=== PATIENT | female | born 1990 | race Hispanic/Latino ===

== ENCOUNTER 2021-11-11 20:05 | Emergency (ER) | payer OTHER ==
[2021-11-11 20:58] LABS: #Basophils 0.1 10x3/uL (0.0-0.2); #Eosinphils 0.2 10x3/uL (0.0-0.5); #Monocytes 0.9 10x3/uL (0.0-1.1); #Neutrophils 11.8 10x3/uL (1.5-8.4); %Basophils 0.5 % (0.0-2.0); %Eosinophils 1.1 % (0.0-6.0); %Lymphocytes 20.7 % (18.0-47.0); %Monocytes 5.4 % (0.0-10.0); %Neutrophils 71.9 % (40.0-75.0); Hemoglobin 14.8 g/dL (12.0-15.5); Mean Corpuscular Hemoglobin 27.8 pg (27.0-33.0); Mean Corpuscular Volume 81.8 fl (81.6-98.3); Mean Platelet Volume 9.8 fl (7.4-10.4); Platelet Count 322 10x3/uL (150-450); RBC Distribution Width 14.2 % (11.5-14.5); Red Blood Cell (RBC) Count 5.32 10x6/uL (3.90-5.03); White Blood Cell (WBC) Count 16.4 10x3/uL (3.5-10.5)
[2021-11-11 21:09] LABS: BHCG - Serum POSITIVE (NEGATIVE); Pregs Control Background? CLEAR/WHITE (CLR/WHITE); Pregs Control Bar Appear? YES (CONTROL BAR)
[2021-11-11 21:11] LABS: ALT (SGPT) 28 U/L (8-55); AST (SGOT) 15 U/L (5-34); Albumin 4.3 g/dL (3.5-5.0); Alkaline Phosphatase 81 U/L (40-110); Anion Gap 13 mmol/L (10-20); BUN (Urea Nitrogen) 8 mg/dL (7.0-18.7); Bilirubin, Total 0.4 mg/dL (0.2-1.2); CK (CPK) 106 U/L (29-168); Calc. Creatinine Clearance 0 mL/min (70-130); Calcium 9.6 mg/dL (7.8-10.44); Carbon Dioxide 24 mmol/L (22-29); Chloride 103 mmol/L (98-107); Estimated GFR 100; Glucose 104 mg/dL (70-105); Lipase 23 U/L (8-78); Potassium 3.9 mmol/L (3.5-5.1); Protein, Total 7.3 g/dL (6.0-8.3); Sodium 136 mmol/L (136-145)
[2021-11-11] MEDS ORDERED: Diazepam 5 MG TAB ONE (21:16)
[2021-11-11] MEDS ORDERED: Ketorolac Tromethamine 30 MG/ML VIAL ONE (21:16)
== END 2021-11-11 23:03 | disposition home or self-care (01) ==
LOC: CSHERS 20:05
DX: O99.891 Other specified diseases and conditions complicating pregnancy (principal); R07.9 Chest pain, unspecified; Z3A.00 Weeks of gestation of pregnancy not specified
CPT/HCPCS: 36415; 71045; 82550; 83690; 84702; 84703; 93005; 96372; J1885

== ENCOUNTER 2022-01-12 23:54 | Day surgery (SDC) | payer OTHER ==
[2022-01-13 00:41] LABS: Amphetamine Detected (NotDetected); Barbiturates Screen Not Detected (NotDetected); Benzodiazepine Screen Not Detected (NotDetected); Cocaine Metabolite Screen Not Detected (NotDetected); Methadone Not Detected (NotDetected); Methamphetamine Detected (NotDetected); Opiate Screen Not Detected (NotDetected); Oxycodone Screen Not Detected (NotDetected); Phencyclidine (PCP) Not Detected (NotDetected); THC/Cannabinoid Screen Detected (NotDetected); Tricyclic Screen Not Detected (NotDetected)
[2022-01-13 00:49] LABS: Bilirubin Neg (Negative); Blood, Urine 10 (Negative); Clarity Sl. Cloudy (Clear); Glucose, Urine (Dipstick) Normal (Negative); Ketone, Urine 50 mg/dL (Negative); Leukocyte 500 (Negative); Nitrite Negative (Negative); Protein, Urine (Dipstick) 15 mg/dl (Neg-Trace); Urobilinogen Normal mg/dL (Less than 2)
[2022-01-13 00:51] LABS: Urine Culture Reflex No No
[2022-01-13 01:04] LABS: Bacteria/HPF 1+ HPF (None Seen); RBC/HPF 0-3 HPF (0-3); Squamous Epithelial 0-3 HPF (0-3)
[2022-01-13 01:28] VITALS: BMI 21.6
[2022-01-13] MEDS ORDERED: cefTRIAXone\\ROCEPHIN 1 GM VIAL IM SCH (01:45)
[2022-01-13] MEDS ORDERED: Lidocaine 1% PF 10 ML AMP ONE (02:08)
== END 2022-01-13 02:30 | disposition home or self-care (01) ==
LOC: CSHLD/OP 23:54
PROVIDERS: ATTEND Obstetrics & Gynecology
DX: O99.321 Drug use complicating pregnancy, first trimester (principal); F12.929 Cannabis use, unspecified with intoxication, unspecified; F15.929 Other stimulant use, unspecified with intoxication, unspecified; O23.41 Unspecified infection of urinary tract in pregnancy, first trimester; N39.0 Urinary tract infection, site not specified; Z3A.13 13 weeks gestation of pregnancy
CPT/HCPCS: 51701; 80306; 81001; 87086; 96372; 99283; J0696; J2001

== ENCOUNTER 2022-07-08 02:44 | Inpatient (IN) | payer OTHER ==
[2022-07-08] MEDS ORDERED: Azithromycin 500 MG VIAL ONE (03:18)
[2022-07-08] MEDS ORDERED: CEFAZOLIN 2 GM VIAL ONE (03:19)
[2022-07-08] MEDS ORDERED: Famotidine/PF 20 mg/2ml Vial SLOW IVP PRN (03:22)
[2022-07-08] MEDS ORDERED: Bicitra 30 ML UDCUP PO PRN (03:22)
[2022-07-08] MEDS ORDERED: Ondansetron PF 4 MG/2 ML Vial IVP PRN ×2 (03:26→04:18)
[2022-07-08] MEDS ORDERED: Promethazine HCl 25 MG/ML VIAL IM PRN ×2 (03:26→04:18)
[2022-07-08] MEDS ORDERED: hydrALAZINE 20 MG/ML VIAL SLOW IVP PRN ×2 (03:26→09:41)
[2022-07-08] MEDS ORDERED: Carboprost 250 MCG/ML AMP IM PRN (03:26)
[2022-07-08] MEDS ORDERED: Tranexamic Acid 1,000 MG/10 ML VIAL IVP PRN (03:26)
[2022-07-08] MEDS ORDERED: Methylergonovine 0.2 MG/ML VIAL IM PRN (03:26)
[2022-07-08] MEDS ORDERED: Misoprostol 200 MCG TAB PR PRN (03:26)
[2022-07-08 03:27] LABS: Hemoglobin 12.8 g/dL (12.0-15.5); Mean Corpuscular HGB CONC 33.2 g/dL (32.0-36.0); Mean Corpuscular Hemoglobin 26.2 pg (27.0-33.0); Mean Corpuscular Volume 79.1 fl (81.6-98.3); Mean Platelet Volume 10.7 fl (7.4-10.4); Platelet Count 338 10x3/uL (150-450); RBC Distribution Width 13.6 % (11.5-14.5); Red Blood Cell (RBC) Count 4.88 10x6/uL (3.90-5.03)
[2022-07-08] MEDS ORDERED: NS w/ Oxytocin 30 units 500 ML IV SCH (03:30)
[2022-07-08] MEDS ORDERED: CEFAZOLIN 2 GM in Sodium Chloride 0.9% 100 ML IVPB SCH (03:30)
[2022-07-08] MEDS ORDERED: Azithromycin 500 MG in Sodium Chloride 0.9% 250 ML 250 ML IVPB SCH (03:30)
[2022-07-08] MEDS ORDERED: Dextrose 5% in Water 1,000 ML IV PRN (03:32)
[2022-07-08] MEDS ORDERED: Dextrose 50% Abboject 50 ML SYRINGE SLOW IVP PRN (03:32)
[2022-07-08] MEDS ORDERED: Oxytocin 10 UNITS/ML VIAL ONE (03:53)
[2022-07-08] MEDS ORDERED: PHENYLEPHRINE-NS 100 MCG/ML 10 ML SYRINGE ONE ×3 (03:53→05:52)
[2022-07-08] MEDS ORDERED: Ondansetron PF 4 MG/2 ML Vial ONE (03:54)
[2022-07-08] MEDS ORDERED: Morphine PF 10 MG/10 ML VIAL ONE (03:57)
[2022-07-08 03:59] LABS: Syphilis Antibody Nonreactive (Nonreactive); Syphilis Antibody Index 0.03 S/CO (<1.00 Non-Reactive)
[2022-07-08 04:00] LABS: HBSAg Index 0.19 S/CO (0-0.99); Hep B Surf Ag - L&D Non-Reactive S/CO (NonReactive)
[2022-07-08] MEDS ORDERED: Promethazine HCl 25 MG SUPP PR PRN (04:18)
[2022-07-08] MEDS ORDERED: Moisturizing Cream (Eucerin) 113 GM JAR TOP PRN (04:18)
[2022-07-08] MEDS ORDERED: Fentanyl 100 MCG/2 ML VIAL SLOW IVP PRN (04:18)
[2022-07-08] MEDS ORDERED: Ondansetron HCl/PF 4 MG/2 ML Vial IVP PRN (04:18)
[2022-07-08] MEDS ORDERED: Naloxone HCl 0.4 mg/ml Vial IV PRN (04:18)
[2022-07-08] MEDS ORDERED: Ketorolac Tromethamine 30 MG/ML VIAL IVP PRN (04:18)
[2022-07-08] MEDS ORDERED: diphenhydrAMINE 50 MG/ML VIAL IVP PRN (04:18)
[2022-07-08] MEDS ORDERED: Meperidine HCl/PF 25 MG/ML VIAL SLOW IVP PRN ×2 (04:18→07:52)
[2022-07-08] MEDS ORDERED: Naloxone HCl 0.4 mg/ml Vial IVP PRN ×2 (04:18)
[2022-07-08 04:27] VITALS: BMI 29.0
[2022-07-08] MEDS ORDERED: Communication Order-Pharmacy FS SCH (04:30)
[2022-07-08] MEDS ORDERED: Ketorolac Tromethamine 30 MG/ML VIAL IVP SCH ×2 (04:30→08:00)
[2022-07-08 04:41] LABS: Glucose 95 mg/dL (70-105)
[2022-07-08 04:48] LABS: Amphetamine Detected (NotDetected); Barbiturates Screen Not Detected (NotDetected); Benzodiazepine Screen Not Detected (NotDetected); Cocaine Metabolite Screen Not Detected (NotDetected); Methadone Not Detected (NotDetected); Methamphetamine Detected (NotDetected); Opiate Screen Not Detected (NotDetected); Oxycodone Screen Not Detected (NotDetected); Phencyclidine (PCP) Not Detected (NotDetected); THC/Cannabinoid Screen Detected (NotDetected); Tricyclic Screen Not Detected (NotDetected)
[2022-07-08] MEDS ORDERED: Fentanyl 100 MCG/2 ML VIAL ONE (05:35)
[2022-07-08] MEDS ORDERED: Midazolam HCl 2 mg/2 ml Vial ONE (05:36)
[2022-07-08] MEDS ORDERED: fentaNYL 50 mcg/mL 1 mL Vial SLOW IVP PRN (07:53)
[2022-07-08] MEDS ORDERED: Boostrix 0.5 ML (Tdap) VIAL (>/=7 yrs of age) IM ONE (09:41)
[2022-07-08] MEDS ORDERED: Acetaminophen 325 MG TAB PO PRN (09:41)
[2022-07-08] MEDS ORDERED: Measles/Mumps/Rubella 10 MCG/0.5 ML VIAL SC ONE (09:41)
[2022-07-08] MEDS ORDERED: Simethicone Chewable 80 MG TAB PO PRN (09:41)
[2022-07-08] MEDS ORDERED: Varicella virus, LIVE 0.5 ML VIAL SC ONE (09:41)
[2022-07-08] MEDS ORDERED: Ferrous Sulfate 325 MG TAB PO SCH (10:00)
[2022-07-08] MEDS ORDERED: Prenatal Vitamin 1 TAB PO SCH (10:00)
[2022-07-08] MEDS ORDERED: Docusate 100 MG CAP PO SCH (10:00)
[2022-07-08 10:32] LABS: HIV (1/2) Antibody/Antigen Non-Reactive (NonReactive); HIV 1/2 INDEX 0.09 S/CO (<1.00)
[2022-07-08] MEDS: HYDROcodone/Acetaminophen 5/325 mg Tablet PO PRN (17:29)
[2022-07-08] MEDS: Docusate 100 MG CAP PO SCH (21:09)
[2022-07-08] MEDS: Ferrous Sulfate 325 MG TAB PO SCH (21:22)
[2022-07-09 04:16] LABS: Hemoglobin 10.3 g/dL (12.0-15.5); Mean Corpuscular HGB CONC 31.9 g/dL (32.0-36.0); Mean Corpuscular Hemoglobin 25.8 pg (27.0-33.0); Mean Platelet Volume 10.3 fl (7.4-10.4); Platelet Count 268 10x3/uL (150-450); RBC Distribution Width 13.9 % (11.5-14.5); Red Blood Cell (RBC) Count 3.99 10x6/uL (3.90-5.03); White Blood Cell (WBC) Count 14.5 10x3/uL (3.5-10.5)
[2022-07-09] MEDS: Ibuprofen 800 MG TAB PO SCH ×4 (05:07→21:15)
[2022-07-09] MEDS: HYDROcodone/Acetaminophen 5/325 mg Tablet PO PRN ×4 (05:08→18:38)
[2022-07-09] MEDS: Prenatal Vitamin 1 TAB PO SCH (08:25)
[2022-07-09] MEDS: Docusate 100 MG CAP PO SCH ×2 (08:25→21:15)
[2022-07-09] MEDS: Ferrous Sulfate 325 MG TAB PO SCH ×2 (09:39→21:57)
[2022-07-10] MEDS: HYDROcodone/Acetaminophen 5/325 mg Tablet PO PRN ×2 (04:49→10:50)
[2022-07-10] MEDS: Ibuprofen 800 MG TAB PO SCH (05:30)
[2022-07-10 07:34] VITALS: BP 126/80; TEMP 98.2
[2022-07-10] MEDS: Ferrous Sulfate 325 MG TAB PO SCH (07:40)
[2022-07-10] MEDS: Docusate 100 MG CAP PO SCH (10:01)
[2022-07-10] MEDS: Prenatal Vitamin 1 TAB PO SCH (10:02)
== END 2022-07-10 11:10 | disposition home or self-care (01) | DRG 787 ==
LOC: CSHLD/OP 02:44 → CSHLD 03:11 → CSHPP 09:08
PROVIDERS: ADMIT Family Medicine; ATTEND Family Medicine
PROC: 10D00Z1 Extraction of Products of Conception, Low, Open Approach (ICD-10-PCS; principal; 2022-07-08)
DX: O42.02 Full-term premature rupture of membranes, onset of labor within 24 hours of rupture (principal); O98.32 Other infections with a predominantly sexual mode of transmission complicating childbirth; O99.324 Drug use complicating childbirth; Z3A.38 38 weeks gestation of pregnancy; Z37.0 Single live birth; F41.1 Generalized anxiety disorder; K21.9 Gastro-esophageal reflux disease without esophagitis; O99.344 Other mental disorders complicating childbirth; O99.62 Diseases of the digestive system complicating childbirth; E66.9 Obesity, unspecified; O99.214 Obesity complicating childbirth; O34.211 Maternal care for low transverse scar from previous cesarean delivery; F17.210 Nicotine dependence, cigarettes, uncomplicated; O99.334 Smoking (tobacco) complicating childbirth; F15.10 Other stimulant abuse, uncomplicated; O99.892 Other specified diseases and conditions complicating childbirth; R73.03 Prediabetes; A63.0 Anogenital (venereal) warts; A59.9 Trichomoniasis, unspecified; O32.4XX0 Maternal care for high head at term, not applicable or unspecified; F12.90 Cannabis use, unspecified, uncomplicated
CPT/HCPCS: 36415; 51702; 80306; 82947; 85027; 86780; 86850; 86900; 86901; 87340; 87389; 88307; 99285; J0456; J1200; J1885; J2250; J2274; J2405; J2550; J2590; J3010